=== PATIENT | male | born 1965 | race Caucasian/White ===

== ENCOUNTER 2018-05-30 08:11 | Emergency (ER) | payer BC, OTHER ==
[2018-05-30 08:42] VITALS: BP 128/77
--- NOTE | 2018-05-30 09:17 | ED ---
Throat Pain/Nasal Congestion - HPI Summary HPI Summary: 52 yr old male with right sided sore throat and right ear pain. onset a week ago. No other symptoms. No drooling, no stridor. The patient has no other complaints. He turned head 4 months ago and felt a pull in his right anterior neck muscle, and at that time it hurt to talk loud or to swallow. Now he can talk without any issues. - History of Current Complaint Chief Complaint: UCGeneralIllness Time Seen by Provider: 05/30/18 08:36 - Allergies/Home Medications Allergies/Adverse Reactions: Allergies Allergy/AdvReac Type Severity Reaction Status Date / Time No Known Allergies Allergy Verified 05/30/18 08:34 Home Medications: Home Medications Ibuprofen TAB* [Advil TAB*] 400 mg PO Q6H PRN 05/30/18 [History Confirmed ] PMH/Surg Hx/FS Hx/Imm Hx Endocrine/Hematology History: Denies: Hx Diabetes, Hx Thyroid Disease Cardiovascular History: Denies: Hx Hypertension Respiratory History: Denies: Hx Asthma Infectious Disease History: No Infectious Disease History: Denies: Traveled Outside the [place] in Last 30 Days - Family History Known Family History: Positive: None - Social History Occupation: Employed Full-time Lives: With Family Alcohol Use: Weekly Substance Use Type: Reports: None Smoking Status (MU): Never Smoked Tobacco Review of Systems Constitutional: Negative Positive: Sore Throat, Ear Ache All Other Systems Reviewed And Are Negative: Yes Physical Exam Triage Information Reviewed: Yes Vital Signs On Initial Exam: Initial Vitals Temp Pulse Resp BP Pulse Ox 97.4 F 60 18 128/77 99 05/30/18 08:35 05/30/18 08:35 05/30/18 08:35 05/30/18 08:35 05/30/18 08:35 Vital Signs Reviewed: Yes Appearance: Positive: Well-Appearing, No Pain Distress Skin: Positive: Warm, Skin Color Reflects Adequate Perfusion Head/Face: Positive: Normal Head/Face Inspection Eyes: Positive: EOMI ENT: Positive: Pharyngeal erythema - right soft palate, TMs normal. Negative: Nasal congestion, Nasal drainage, Tonsillar swelling, Tonsillar exudate, Muffled voice, Hoarse voice Dental: Negative: Cervical Lymphadenopathy Neck: Positive: Supple, Nontender, No Lymphadenopathy. Negative: Tenderness @, Enlarged Nodes @ Respiratory/Lung Sounds: Positive: Clear to Auscultation, Breath Sounds Present Cardiovascular: Positive: RRR. Negative: Murmur Abdomen Description: Positive: Nontender Musculoskeletal: Positive: Strength/ROM Intact Neurological: Positive: Sensory/Motor Intact, Alert, Oriented to Person Place, Time, CN Intact II-III Psychiatric: Positive: Normal - [place] Coma Scale Best Eye Response: 4 - Spontaneous Best Motor Response: 6 - Obeys Commands Best Verbal Response: 5 - Oriented Coma Scale Total: 15 Diagnostics - Vital Signs Vital Signs Temp Pulse Resp BP Pulse Ox 05/30/18 08:35 97.4 F 60 18 128/77 99 - Laboratory Lab Results: Lab Results 05/30/18 Range/Units 09:01 Group A Strep Rapid Negative (Negative) Lab Statement: Any lab studies that have been ordered have been reviewed, and results considered in the medical decision making process. EENT Course/Dx - Course Course Of Treatment: 52 yr old with redness to the soft palate on the right side only. Neg rapid strep. Plan DC home on amox. Fu with PMD. - Diagnoses Provider Diagnoses: Pharyngitis Discharge - Sign-Out/Discharge Documenting (check all that apply): Patient Departure All imaging exams completed and their final reports reviewed: No Studies - Discharge Plan Condition: Good Disposition: HOME Prescriptions: Amoxicillin PO (*) [Amoxicillin 500 MG CAP*] 500 mg PO TID #30 cap Patient Education Materials: Pharyngitis (ED) Referrals: No Primary Care Phys,NOPCP [Primary Care Provider] - [facility] [place] [facility] [Outside] - Billing Disposition and Condition Condition: GOOD Disposition: Home
== END 2018-05-30 09:21 | disposition home or self-care (01) ==
LOC: UCCORT 08:11
DX: J02.9 Acute pharyngitis, unspecified (principal); H92.01 Otalgia, right ear
CPT/HCPCS: 87651; 99202; G0463

== ENCOUNTER 2019-01-24 15:23 | Emergency (ER) | payer BC ==
[2019-01-24 16:23] VITALS: BP 131/78
--- NOTE | 2019-01-24 16:34 | UC ---
Laceration HPI - HPI Summary HPI Summary: Patient is a 53yo male presenting with for lacerations to R 1st, 2nd, and 3rd fingertips that happened 2 hours ago while using his table saw at home. Notes they bled immediately but he got the bleeding to stop. Denies pain currently. Notes that he "does not think anything is missing and that he just got the surface." Denies decreased ROM. Patient states he is not up to date on his tetanus shot. - History Of Current Complaint Chief Complaint: UCLaceration Stated Complaint: RT FIRST THREE FINGER LAC Hx Obtained From: Patient Pain Intensity: 0 Pain Scale Used: 0-10 Numeric Related History: Dominant Hand Right - Allergies/Home Medications Allergies/Adverse Reactions: Allergies Allergy/AdvReac Type Severity Reaction Status Date / Time No Known Allergies Allergy Verified 01/24/19 16:13 Home Medications: Home Medications Naproxen Sodium [Naproxen 220 mg] 440 mg PO DAILY 01/24/19 [History Confirmed ] PMH/Surg Hx/FS Hx/Imm Hx Previously Healthy: Yes - Surgical History Surgical History: None - Family History Known Family History: Positive: None - Social History Occupation: Employed Full-time Lives: With Family Alcohol Use: Weekly Alcohol Amount: 3 Substance Use Type: None Smoking Status (MU): Never Smoked Tobacco - Immunization History Most Recent Tetanus Shot: Unknown Review of Systems All Other Systems Reviewed And Are Negative: No Skin: Positive: Other - finger laceration of R 1st, 2nd, 3rd Respiratory: Positive: Negative Cardiovascular: Positive: Negative Neurovascular: Positive: Negative Musculoskeletal: Positive: Negative. Negative: Arthralgia, Decreased ROM, Edema Neurological: Negative: Weakness, Paresthesia, Numbness Physical Exam Triage Information Reviewed: Yes Appearance: Well-Appearing, No Pain Distress, Well-Nourished Vital Signs: Initial Vital Signs Temp 98.5 F 01/24/19 16:15 Pulse 68 01/24/19 16:15 Resp 20 01/24/19 16:15 BP 131/78 01/24/19 16:15 Pulse Ox 99 01/24/19 16:15 Vital Signs Reviewed: Yes Eyes: Positive: Conjunctiva Clear ENT: Positive: Hearing grossly normal Neck: Positive: Supple Respiratory: Positive: No respiratory distress Cardiovascular: Positive: Pulses Normal - normal radial pulses, Brisk Capillary Refill Musculoskeletal: Positive: Strength Intact, ROM Intact, No Edema Neurological: Positive: Alert Psychological: Positive: Age Appropriate Behavior Skin: Positive: Other - superficial skin avulsions of 1st, 2nd, 3rd R fingertips. no active bleeding. Laceration Course/Dx - Course/Dx Course Of Treatment: superficial skin avulsions not requiring repair. Wound was irrigated and dressing were applied. Instructed to continue with wound care and educated on s/ s of infection. Patient voiced understanding and agreed with treatment plan. - Diagnosis Provider Diagnosis: Avulsion of skin of finger without complication Discharge ED - Sign-Out/Discharge Documenting (check all that apply): Patient Departure All imaging exams completed and their final reports reviewed: No Studies - Discharge Plan Condition: Stable Disposition: HOME Patient Education Materials: Skin Avulsion (ED) Referrals: No Primary Care Phys,NOPCP [Primary Care Provider] - Additional Instructions: As discussed, keep the area clean and dry for the first 24-48 hours. After that, you may wash gently with soap and warm water and reapply dressings. The skin should heal well on its own with time. You may take over the counter pain medications as directed for pain relief. Return or go to the emergency department if you notice any redness, swelling, severe pain, fluid drainage, fever, or nausea and vomiting. - Billing Disposition and Condition Condition: STABLE Disposition: Home
[2019-01-24] MEDS ORDERED: Tetan/Diph/Pertus SYR(Tdap)* 0.5 ML SYR(BOOSTRIX) use SYR contains LATEX IM ONE (16:45)
== END 2019-01-24 17:11 | disposition home or self-care (01) ==
LOC: UCCORT 15:23
DX: S61.011A Laceration without foreign body of right thumb without damage to nail, initial encounter (principal); S61.210A Laceration without foreign body of right index finger without damage to nail, initial encounter; S61.212A Laceration without foreign body of right middle finger without damage to nail, initial encounter; Z23 Encounter for immunization; W27.0XXA Contact with workbench tool, initial encounter; Y92.009 Unspecified place in unspecified non-institutional (private) residence as the place of occurrence of the external cause
CPT/HCPCS: 90471; 90715; 99212; G0463